=== PATIENT | female | born 1970 | race Hispanic/Latino ===

== ENCOUNTER 2017-09-13 06:49 | Day surgery (SDC) | payer MEDICAID ==
[~2017-09-13] VITALS: Ht 154.9 cm; Wt 64.0 kg
[~2017-09-13 06:49] MED LIST: ALPR0.255 PO; CHOL40003 PO; ESOM40CA PO; LACT10SO9 PO; LEVO88TA7 PO; MULT-1192 PO; PROP20TA7 PO; RIFA550T PO; SODIUM CHLORIDE 0.9% 1000ML 1,000 ML IV ONE; TRAM50TA4 PO
[2017-09-13 07:00] VITALS: BP 110/65
[2017-09-13] MEDS ORDERED: PROPOFOL 10 MG/ML 20ML VIAL IV ONE (08:43)
[2017-09-13 08:56] VITALS: BP 87/52
== END 2017-09-13 09:35 | disposition home or self-care (01) ==
LOC: ENDO 06:49 → DAH 06:49 → ENDO 09:35
PROVIDERS: ATTEND Internal Medicine Gastroenterology
DX: K29.50 Unspecified chronic gastritis without bleeding (principal); I86.4 Gastric varices; K74.60 Unspecified cirrhosis of liver; E03.9 Hypothyroidism, unspecified; K21.9 Gastro-esophageal reflux disease without esophagitis; E55.9 Vitamin D deficiency, unspecified; Z79.899 Other long term (current) drug therapy; Z98.890 Other specified postprocedural states; Z82.49 Family history of ischemic heart disease and other diseases of the circulatory system
CPT/HCPCS: 43239; 88305; 88312; A4606; J2704; J7030

== ENCOUNTER → 2018-03-04 | Outpatient (CLI) | payer MEDICAID ==
[~2018-03-04] MED LIST changes: -SODIUM CHLORIDE 0.9% 1000ML 1,000 ML IV ONE
== END | disposition home or self-care (01) ==
LOC: RAH 07:30
PROVIDERS: ATTEND Internal Medicine Gastroenterology
DX: K74.60 Unspecified cirrhosis of liver (principal)
CPT/HCPCS: 76700; 93975

== ENCOUNTER → 2018-09-22 | Outpatient (CLI) | payer MEDICAID ==
[~2018-09-22] MED LIST changes: +CHOL40002 PO; -CHOL40003 PO
== END | disposition home or self-care (01) ==
LOC: RAH 08:19
PROVIDERS: ATTEND Internal Medicine Gastroenterology
DX: R16.1 Splenomegaly, not elsewhere classified (principal); K74.60 Unspecified cirrhosis of liver
CPT/HCPCS: 76700

== ENCOUNTER → 2019-01-30 | Outpatient (CLI) | payer MEDICAID ==
[~2019-01-30] MED LIST changes: +IOHEXOL-350 75 ML VIAL IV ONE
== END | disposition home or self-care (01) ==
LOC: RAH 08:58
PROVIDERS: ATTEND Internal Medicine Gastroenterology
DX: K74.60 Unspecified cirrhosis of liver (principal); R16.1 Splenomegaly, not elsewhere classified
CPT/HCPCS: 74170; Q9967

== ENCOUNTER → 2019-11-13 | Outpatient (CLI) | payer MEDICAID ==
[~2019-11-13] MED LIST changes: -ALPR0.255 PO; +AMPI500C12 PO; +ESCI10TA54 PO; +HYDR-3421 PO; -IOHEXOL-350 75 ML VIAL IV ONE; +IRON PO; +LEVO50TA11 PO; -LEVO88TA7 PO; -RIFA550T PO
== END | disposition home or self-care (01) ==
LOC: RAH 08:49
PROVIDERS: ATTEND Internal Medicine Gastroenterology
DX: K74.60 Unspecified cirrhosis of liver (principal); K76.89 Other specified diseases of liver
CPT/HCPCS: 76700; 93975

== ENCOUNTER → 2020-06-14 | Outpatient (CLI) | payer MEDICAID ==
[~2020-06-14] MED LIST changes: +ESCI-8 PO; -ESCI10TA54 PO
== END | disposition home or self-care (01) ==
LOC: RAH 08:23
PROVIDERS: ATTEND Internal Medicine Gastroenterology
DX: K76.89 Other specified diseases of liver (principal); R91.1 Solitary pulmonary nodule; K74.60 Unspecified cirrhosis of liver
CPT/HCPCS: 76700; 93975

== ENCOUNTER 2023-12-18 13:41 | Emergency (ER) | payer MEDICAID ==
[~2023-12-18] VITALS: Ht 149.9 cm; Wt 64.9 kg
[2023-12-18 14:12] LABS: BASOPHILS # (AUTO) 0.02 K/uL (0.00-0.20); BASOPHILS % (AUTO) 0.3 % (0.0-5.0); EOSINOPHILS # (AUTO) 0.07 K/uL (0.00-0.70); EOSINOPHILS % (AUTO) 0.9 % (0.0-8.0); IMMATURE GRANULOCYTE ABSOLUTE 0.02 K/uL (0-1); LYMPHOCYTES # (AUTO) 0.9 K/uL (1.0-4.8); LYMPHOCYTES % (AUTO) 11.6 % (21.0-51.0); MEAN CORPUSCULAR HEMOGLOBIN 29.7 pg (27.0-33.0); MEAN CORPUSCULAR HGB CONC 33.4 g/dL (32.0-36.0); MEAN CORPUSCULAR VOLUME 88.9 fL (79-99); MONOCYTES # (AUTO) 0.5 K/uL (0.1-1.0); MONOCYTES % (AUTO) 6.4 % (3.0-13.0); NEUTROPHILS % (AUTO) 80.5 % (40.0-77.0); PLATELET COUNT (AUTO) 131 K/uL (130-400); RED BLOOD CELL COUNT(AUTO) 4.95 MIL/uL (4.00-5.50); RED CELL DISTRIBUTION WIDTH 12.6 % (11.0-15.5); WHITE BLOOD COUNT (AUTO) 7.5 K/uL (4.8-10.8)
[2023-12-18 14:22] LABS: CREATININE 0.7 mg/dL (0.5-1.0); POTASSIUM 4.3 mmol/L (3.5-5.1)
[2023-12-18 15:10] LABS: ADD UA MICROSCOPIC YES; APPEARANCE,URINE CLEAR (CLEAR); BILIRUBIN,URINE NEGATIVE (NEGATIVE); COLOR,URINE YELLOW (YELLOW); GLUCOSE, URINE (UA) NEGATIVE (NEGATIVE); KETONES,URINE NEGATIVE (NEGATIVE); LEUKOCYTE ESTERASE ,URINE 25 Leu/uL (NEGATIVE); NITRATE,URINE NEGATIVE (NEGATIVE); OCCULT BLOOD,URINE NEGATIVE (NEGATIVE); PROTEIN,URINE 10 mg/dL (NEGATIVE); UROBILINOGEN,URINE 0.2 mg/dL (0.2-1.0)
[2023-12-18 15:14] LABS: BACTERIA,URINE RARE /HPF (None Seen); MUCUS,URINE FEW LPF (None Seen); SQUAMOUS EPITHELIAL CELL,UR FEW /HPF (0-2)
[2023-12-18] MEDS ORDERED: IOHEXOL-350 75 ML VIAL IV ONE (15:14)
[2023-12-18 15:18] LABS: ALBUMIN 3.5 g/dL (3.5-5.0); TOTAL PROTEIN, SERUM 7.8 g/dL (6.0-8.3)
[2023-12-18] MEDS ORDERED: CEPH500T PO (16:08)
[2023-12-18 16:54] VITALS: BP 128/71; PULSE 71; RESP 16; O2SAT 98
== END 2023-12-18 16:54 | disposition home or self-care (01) ==
LOC: EDH 13:41
DX: N39.0 Urinary tract infection, site not specified (principal); E03.9 Hypothyroidism, unspecified; Z79.899 Other long term (current) drug therapy; Z79.1 Long term (current) use of non-steroidal anti-inflammatories (NSAID)
CPT/HCPCS: 99285; 74177; 80053; 83690; 85025; 81001; 36415; Q9967

== ENCOUNTER 2024-03-10 10:05 | Day surgery (SDC) | payer MEDICAID ==
[2024-03-10] VITALS (9 sets, daily range): BP systolic 90–133; BP diastolic 53–78; PULSE 55–70; RESP 16–23; TEMP 97.2–207.3
[~2024-03-10] VITALS: Ht 149.9 cm; Wt 64.9 kg
[~2024-03-10 10:05] MED LIST changes: +ALPR-409 PO; -AMPI500C12 PO; +CARV3.12 PO; -IRON PO; -LEVO50TA11 PO; +LEVO88CA4 PO; -PROP20TA7 PO; -TRAM50TA4 PO
[2024-03-10] MEDS: 0.9%NACL 1000ML 1,000 ML IV ONE (10:35)
[2024-03-10] MEDS ORDERED: proPOFol 10 MG/ML 20ML VIAL IV ONE (12:49)
[2024-03-10] MEDS ORDERED: LIDOCAINE HCL 1% 20 ML VIAL ONE (12:50)
== END 2024-03-10 14:12 | disposition home or self-care (01) ==
LOC: ENDO 10:05 → DAH 10:05 → ENDO 14:12
PROVIDERS: ATTEND Internal Medicine Gastroenterology
DX: Z12.11 Encounter for screening for malignant neoplasm of colon (principal); D12.2 Benign neoplasm of ascending colon; D12.3 Benign neoplasm of transverse colon; D12.8 Benign neoplasm of rectum; D12.5 Benign neoplasm of sigmoid colon; K57.30 Diverticulosis of large intestine without perforation or abscess without bleeding; K21.9 Gastro-esophageal reflux disease without esophagitis; E03.9 Hypothyroidism, unspecified; Z98.51 Tubal ligation status; Z79.899 Other long term (current) drug therapy
CPT/HCPCS: 45380; 45385; J7030 ×2; J2704; A4620; A4215 ×2; A4223; A4657; A4222; A4221; A4663; A4606; J3490

== ENCOUNTER 2024-06-29 10:10 | Emergency (ER) | payer MEDICAID ==
[~2024-06-29] VITALS: Ht 149.9 cm; Wt 66.7 kg
--- NOTE | 2024-06-29 10:17 | EKG ---
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
[2024-06-29 11:08] LABS: BASOPHILS # (AUTO) 0.02 K/uL (0.00-0.20); BASOPHILS % (AUTO) 0.5 % (0.0-5.0); EOSINOPHILS # (AUTO) 0.13 K/uL (0.00-0.70); EOSINOPHILS % (AUTO) 3.4 % (0.0-8.0); HEMATOCRIT 42.7 % (36-48); IMMATURE GRANULOCYTE ABSOLUTE 0.01 K/uL (0-1); LYMPHOCYTES # (AUTO) 0.8 K/uL (1.0-4.8); LYMPHOCYTES % (AUTO) 19.6 % (21.0-51.0); MEAN CORPUSCULAR HEMOGLOBIN 30.4 pg (27.0-33.0); MEAN CORPUSCULAR HGB CONC 33.7 g/dL (32.0-36.0); MEAN CORPUSCULAR VOLUME 90.1 fL (79-99); MONOCYTES # (AUTO) 0.4 K/uL (0.1-1.0); MONOCYTES % (AUTO) 10.3 % (3.0-13.0); NEUTROPHILS # (AUTO) 2.6 K/uL (1.8-7.7); NEUTROPHILS % (AUTO) 65.9 % (40.0-77.0); PLATELET COUNT (AUTO) 131 K/uL (130-400); RED BLOOD CELL COUNT(AUTO) 4.74 MIL/uL (4.00-5.50); RED CELL DISTRIBUTION WIDTH 12.1 % (11.0-15.5); WHITE BLOOD COUNT (AUTO) 3.9 K/uL (4.8-10.8)
[2024-06-29 11:09] LABS: CREATININE 0.7 mg/dL (0.5-1.0); POTASSIUM 3.7 mmol/L (3.5-5.1)
--- NOTE | 2024-06-29 11:09 | ERN ---
ED Note History of Present Illness Stated Complaint: CP Chief Complaint: Chest Pain Time Seen by MD: 10:17 Dictation: 53-year-old female with a history of anxiety, thyroid and liver cirrhosis presents to the ED via EMS for evaluation of chest pain onset PLAST[employer] C[employer]TER. Patient is complaining of nausea and dizziness, but denies any other associated symptoms at time. Patient mentioned she was at the store when the symptoms began, but is denying any pain at this time. Allergies: Coded Allergies: No Known Drug Allergies (Unverified Allergy, Unknown, 09/12/17) Home Meds Reported Medications Levothyroxine Sodium (Levothyroxine) 88 Mcg Capsule, 1 CAP PO DAILY for 30 Days, #30 CAP 0 Refills 03/09/24 Carvedilol (Carvedilol) 3.125 Mg Tablet, 1 TAB PO BID for 30 Days, #60 TAB 0 Refills 03/09/24 Alprazolam (Alprazolam) 0.25 Mg Tab.rapdis, 1 TAB PO DAILY for 30 Days, #30 TAB 0 Refills 03/09/24 Hydroxyzine HCl (Hydroxyzine HCl) 25 Mg Tablet, 25 MG PO BID, TAB 07/10/19 Escitalopram Oxalate (Escitalopram Oxalate) 10 Mg Tablet, 10 MG PO DAILY, TAB 07/10/19 Lactulose (Lactulose) 20 Gm/30 Ml Solution, 20 GM PO BID, ML 09/12/17 Multivitamin (Multi-Vitamin Daily) 1 Each Tablet, 1 EACH PO DAILY, TAB 09/12/17 Cholecalciferol (Vitamin D3) (Vitamin D3) 4,000 Unit Capsule, 4000 UNIT PO DAILY, CAP 09/12/17 Esomeprazole Magnesium (Nexium) 40 Mg Capsule.dr, 40 MG PO DAILY, CAP 09/12/17 Past Medical History Past Medical History: Anxiety, Hypertension Surgical History: None Review of System Dictation Constitutional: Negative for fever,chills, and weight loss Eyes: Negative for injury, pain,redness, and discharge ENT: Negative for injury,pain or swelling Cardiovascular: Positive for chest pain Respiratory: Negative for shortness of breath, cough, and wheezing, Abdomen/GI: Positive for nausea Negative for abdominal pain, vomiting, diarrhea, and constipation Back: Positive for back pain : Negative for injury, bleeding and discharge MS/Extremity: Negative for injury and deformity Skin: Negative for rash, and discoloration Neuro: Positive for dizziness Negative for headache, weakness, numbness, tingling, and seizure Psych: Negative for suicide ideation, homicidal ideation, and hallucinations Initial Vital Sign VS Vital Signs Date Time Temp Pulse Resp B/P (MAP) Pulse Ox O2 Delivery O2 Flow Rate FiO2 06/29/24 10:13 97.9 70 16 132/88 100 Room Air 0 06/29/24 12:33 21 Physical Exam Dictation General: awake, alert, NAD Head/Face: Normocephalic, atraumatic Eyes: PERRL, EOMI, vision at baseline ENT: oral cavity clear, TMs clear, no signs of infection Neck: Trachea midline, supple, no nuchal rigidity Cardiovascular: RRR, normal S1/S2, No MRGs, no JVD Respiratory: CTAB, no respiratory distress, No rales or wheezes Abdomen: Soft, non-tender, non-distended, normal bowel sounds, no guarding or rebound. Skin: Warm, dry, normal turgor, no rash MS/Extremity: Pulses equal, no cyanosis, neurovascular intact, FROM Neuro: COAx4, GCS 15, strength 5/5, CN 2-12 intact, normal cerebellar exam, normal gait, Psych: Normal behavior, mood, and affect normal Results (Laboratory/Radiology) Laboratory/Radiology Laboratory Tests Test 06/29/24 10:28 06/29/24 10:48 06/29/24 12:59 06/29/24 13:38 White Blood Count 3.9 K/uL (4.8-10.8) L Red Blood Count 4.74 MIL/uL (4.00-5.50) Hemoglobin 14.4 g/dL (12.0-16.0) Hematocrit 42.7 % (36-48) Mean Corpuscular Volume 90.1 fL (79-99) Mean Corpuscular Hemoglobin 30.4 pg (27.0-33.0) Mean Corpuscular Hemoglobin Concent 33.7 g/dL (32.0-36.0) Red Cell Distribution Width 12.1 % (11.0-15.5) Platelet Count 131 K/uL (130-400) Mean Platelet Volume 11.4 fL (7.5-10.5) H Immature Granulocyte % (Auto) 0.3 % (0-1) Neutrophils (%) (Auto) 65.9 % (40.0-77.0) Lymphocytes (%) (Auto) 19.6 % (21.0-51.0) L Monocytes (%) (Auto) 10.3 % (3.0-13.0) Eosinophils (%) (Auto) 3.4 % (0.0-8.0) Basophils (%) (Auto) 0.5 % (0.0-5.0) Neutrophils # (Auto) 2.6 K/uL (1.8-7.7) Lymphocytes # (Auto) 0.8 K/uL (1.0-4.8) L Monocytes # (Auto) 0.4 K/uL (0.1-1.0) Eosinophils # (Auto) 0.13 K/uL (0.00-0.70) Basophils # (Auto) 0.02 K/uL (0.00-0.20) Absolute Immature Granulocyte (auto 0.01 K/uL (0-1) Nucleated Red Blood Cells 0.0 % (0.0-0.19) Prothrombin Time 11.6 SEC (9.6-11.6) Prothromb Time International Ratio 1.11 (0.85-1.15) Activated Partial Thromboplast Time 28.5 SEC (26.3-35.5) Sodium Level 141 mmol/L (136-145) Potassium Level 3.7 mmol/L (3.5-5.1) Chloride Level 103 mmol/L (101-111) Carbon Dioxide Level 33 mmol/L (21-32) H Blood Urea Nitrogen 8 mg/dL (7-18) Creatinine 0.7 mg/dL (0.5-1.0) Glomerular Filtration Rate Calc 103 mL/min (>90) Random Glucose 160 mg/dL (70-105) H Total Calcium 8.7 mg/dL (8.5-10.1) Total Bilirubin 0.5 mg/dL (0.2-1.0) Direct Bilirubin 0.1 mg/dL (0.0-0.3) Aspartate Amino Transf (AST/SGOT) 44 U/L (10-37) H Alanine Aminotransferase (ALT/SGPT) 42 U/L (12-78) Alkaline Phosphatase 119 U/L (50-136) Total Creatine Kinase 90 U/L (21-232) Troponin I High Sensitivity < 4 ng/L (4-50) L < 4 ng/L (4-50) L B-Type Natriuretic Peptide 24 pg/mL (0-100) Total Protein 7.5 g/dL (6.0-8.3) Albumin 3.3 g/dL (3.5-5.0) L Urine Color LIGHT-YELLOW (YELLOW) Urine Appearance CLEAR (CLEAR) Urine pH 8.0 (5.0-8.0) Urine Specific [place] 1.005 (1.001-1.031) Urine Protein NEGATIVE mg/dL (NEGATIVE) Urine Glucose (UA) NEGATIVE mg/dL (NEGATIVE) Urine Ketones NEGATIVE mg/dL (NEGATIVE) Urine Occult Blood NEGATIVE (NEGATIVE) Urine Nitrate NEGATIVE (NEGATIVE) Urine Bilirubin NEGATIVE mg/dL (NEGATIVE) Urine Urobilinogen 0.2 mg/dL (0.2-1.0) Urine Leukocyte Esterase NEGATIVE Tammie/uL Troponin I < 0.05 ng/mL (0.00-0.05) Labs Reviewed?: Yes EKG Comment: EKG 06/29/2024 time 10:02 a.m. ventricular rate 70, HI 158, QRS D 85, QT 388. Sinus rhythm, probable left atrial enlargement. No STEMI ED Course ED Course Orders Procedure Category Date Status Time Vital Signs Per CPOE 06/29/24 Transmitted Routine 10:11 B-Type Natriuretic LAB 06/29/24 Complete Peptide 10:11 Chest 1vw RAD 06/29/24 Resulted 10:11 12 Lead Ekg Tracing- EKG 06/29/24 Complete Technical 10:11 Oxygen By Nc/Pulse Ox CPOE 06/29/24 Transmitted 10:11 Maintain Iv CPOE 06/29/24 Transmitted 10:11 Iv Insertion CPOE 06/29/24 Transmitted 10:11 Cardiac Monitoring CPOE 06/29/24 Transmitted 10:11 Pulse Oximetry With CPOE 06/29/24 Transmitted Vs And Prn 10:11 Cbc With Differential LAB 06/29/24 Complete 10:11 Activity: Br W/Brp CPOE 06/29/24 Transmitted With Assist 10:11 Creatine Kinase, Total LAB 06/29/24 Complete 10:11 Troponin I High LAB 06/29/24 Complete Sensitivity 10:11 Urinalysis Profile LAB 06/29/24 Complete 10:11 Troponin Poc Order LAB 06/29/24 Logged Only 10:11 Bedside Troponin-I LAB.ER 06/29/24 In Process (Poc) 10:11 Basic Metabolic Panel LAB 06/29/24 Complete 10:11 Pt And Ptt LAB 06/29/24 Complete 10:18 Lorazepam 2 Mg PHA 06/29/24 Complete (Ativan) 10:30 Aspirin 325mg Ec Tab PHA 06/29/24 Complete (Aspirin 325mg Ec T 10:30 Hepatic Function Panel LAB 06/29/24 Complete 10:28 Troponin I High LAB 06/29/24 Complete Sensitivity 12:42 Current Medications Medications (Trade) Dose Ordered Sig/Jennifer Route PRN Reason Start Time Stop Time Status Last Admin Dose Admin Aspirin (Aspirin 325mg Ec Tab) 325 mg ONCE ONCE PO 06/29/24 10:30 06/29/24 10:31 DC Lorazepam (AtiVAN) 0.5 mg ONCE ONCE IVP 06/29/24 10:30 06/29/24 10:31 DC Vital Signs Date Time Temp Pulse Resp B/P (MAP) Pulse Ox O2 Delivery O2 Flow Rate FiO2 06/29/24 12:33 99.0 63 16 127/76 98 Room Air* 0 21 06/29/24 10:13 97.9 70 16 132/88 100 Room Air 0 HEART Score Response (Comments) Value History: Low suspicion (0) 0 EKG: Normal 0 Age: 45-65yrs (+1) 1 Risk Factors: 1-2 risk factors (+1) 1 Initial Troponin: Normal limit (0) 0 HEART Score Risk: Low Risk for MACE (1-3) Total 2 Medical Decision Making MDM MDM: Differential diagnosis: Chest pain, anxiety, electrolyte imbalance Rationale: Tests considered and ordered secondary to shared decision making include: labs, ECG and radiology Risk of complication and/or morbidity or mortality of patient management: None Medications-Per medication reconciliation Need for hospitalization: Patient does not meet criteria for hospitalization. Need for emergency major/minor surgery: No There are no social concerns with this patient. I independently interpreted the test that were performed, results were reviewed by me and considered findings on radiology if ordered. DX & DISP Disposition: Discharge Departure Impression: Primary Impression: Chest pain Condition: Stable Referrals: LEXUS VAZQUEZ (PCP) I have reviewed, & agreed with my scribe's, documentation. (I, Vinita James, am scribing for Dr. Mathews) I personally scribed for SIMON MATHEWS MD ([email or web address]) on 06/29/24 at 12:06. Electronically submitted by Vinita James ([email or web address]). SIMON MATHEWS MD Jun 29, 2024 11:09
[2024-06-29] MEDS: ASPIRIN 325MG EC TAB PO ONE (11:10)
[2024-06-29] MEDS: LORazepam 2 MG/ML 1 ML VIAL IVP ONE (11:10)
--- NOTE | 2024-06-29 11:13 | NUR ---
patient refused ativan and aspirin, patient took her own prescribed xanax
[2024-06-29 11:14] LABS: ALBUMIN 3.3 g/dL (3.5-5.0); BILIRUBIN,DIRECT 0.1 mg/dL (0.0-0.3); BILIRUBIN,TOTAL 0.5 mg/dL (0.2-1.0); TOTAL PROTEIN, SERUM 7.5 g/dL (6.0-8.3)
[2024-06-29 11:32] LABS: INR 1.11 (0.85-1.15); PROTHROMBIN TIME 11.6 SEC (9.6-11.6)
[2024-06-29 11:34] LABS: PARTIAL THROMBOPLASTIN TIME 28.5 SEC (26.3-35.5)
[2024-06-29 11:38] LABS: B-TYPE NATRIURETIC PEPTIDE 24 pg/mL (0-100)
[2024-06-29 11:50] LABS: APPEARANCE,URINE CLEAR (CLEAR); BILIRUBIN,URINE NEGATIVE (NEGATIVE); COLOR,URINE LIGHT-YELLOW (YELLOW); GLUCOSE, URINE (UA) NEGATIVE (NEGATIVE); KETONES,URINE NEGATIVE (NEGATIVE); LEUKOCYTE ESTERASE ,URINE NEGATIVE Leu/uL (NEGATIVE); NITRATE,URINE NEGATIVE (NEGATIVE); OCCULT BLOOD,URINE NEGATIVE (NEGATIVE); PROTEIN,URINE NEGATIVE (NEGATIVE); UROBILINOGEN,URINE 0.2 mg/dL (0.2-1.0)
[2024-06-29 12:02] LABS: ADD UA MICROSCOPIC NO
--- NOTE | 2024-06-29 12:29 | HMCIMG ---
CHEST 1VW HISTORY: Chest COMPARISON: None FINDINGS: A frontal projection of the chest was obtained. Prominent interstitial markings are seen with possible superimposed infiltrates. The heart is borderline enlarged. Degenerative changes are seen. IMPRESSION: 1. Prominent interstitial markings are seen with possible superimposed infiltrates.
[2024-06-29 14:59] VITALS: BP 107/68; PULSE 80; RESP 16; TEMP 98.1; O2SAT 95
== END 2024-06-29 14:58 | disposition home or self-care (01) ==
LOC: EDH 10:10
DX: R07.89 Other chest pain (principal); F41.9 Anxiety disorder, unspecified; I10 Essential (primary) hypertension; Z79.890 Hormone replacement therapy; Z79.899 Other long term (current) drug therapy
CPT/HCPCS: 36415; 71045; 80048; 80076; 81003; 82550; 83880; 84484; 85025; 85610; 85730; 93005; 99285; J2060